=== PATIENT | male | born 1955 | race Asian ===

== ENCOUNTER 2019-04-21 11:58 | Outpatient (CLI) | payer MEDICARE ==
--- NOTE | 2019-04-22 09:29 | XRAY Report ---
Reason: OTHER INTERVERTEBRAL DISC DEGENERATION, LUMBAR REG Procedure Date: 04/21/2019 Accession Number: [id number] / [id number] Procedure: XR - Lumbar Spine 2 View CPT Code: Final Report FULL RESULT: EXAM: LUMBOSACRAL SPINE RADIOGRAPHY EXAM DATE: 04/21/2019 12:25 PM HISTORY: OTHER INTERVERTEBRAL DISC DEGENERATION, LUMBAR REG TECHNIQUE: AP, lateral and lateral lumbosacral 3 view exam COMPARISON: None. FINDINGS: Mild convex right curvature noted, centered at the L3-L4 level. There is associated moderate to severe degenerative disk disease at this level with disk space narrowing and endplate sclerosis with prominent osteophyte formation laterally on the left. Normal lordosis. No fracture identified. There is also evidence of mild disk space narrowing at L1-L2 and L2-L3. Other: Moderate calcific atherosclerotic disease of the aorta. IMPRESSION: Mild convex right curvature and L3-L4 moderate to severe degenerative disk disease. Mild upper lumbar degenerative disk disease. RADIA
--- NOTE | 2019-04-22 09:36 | XRAY Report ---
Reason: RADICULOPATHY Procedure Date: 04/21/2019 Accession Number: [id number] / [id number] Procedure: XR - Cervical Spine 2 View CPT Code: Final Report FULL RESULT: EXAM: CERVICAL SPINE RADIOGRAPHY EXAM DATE: 04/21/2019 12:23 PM HISTORY: RADICULOPATHY. COMPARISON: NONE. TECHNIQUE: AP, lateral with open mouth and submental odontoid views, 4 view exam FINDINGS: Reversal of the lordosis is centered at the C5-C6 level. No fracture identified within limitations. C1-2: Mild atlanto-dental degenerative appearance. C2-3: Slight anterolisthesis. Moderate posterior facet osteoarthritis greater on the left. Preserved disk space. C3-4: Mild disk space narrowing. Moderate posterior facet osteoarthritis greater on the left. No spondylolisthesis. C4-5: Moderate disk space narrowing and prominent ventral osteophyte formation. Mild uncovertebral joint hypertrophy. Mild posterior facet hypertrophy. No spondylolisthesis. C5-6: Moderate to severe disk space narrowing with moderate osteophyte formation and moderate uncovertebral joint hypertrophy. No significant facet osteoarthritis. No spondylolisthesis. C6-7: Moderate disk space narrowing and osteophyte formation. Moderate uncovertebral joint hypertrophy. No spondylolisthesis. C7-T1: Moderate disk space narrowing and osteophyte formation. Mild posterior facet osteoarthritis. No spondylolisthesis. Prevertebral soft tissues are unremarkable. IMPRESSION: Reversal of lordosis. Typical spondylosis with greater upper cervical posterior facet osteoarthritis and lower cervical degenerative disk disease. See above description. RADIA
== END 2019-04-21 11:59 | disposition home or self-care (01) ==
LOC: DI 11:58
PROVIDERS: ATTEND Family Medicine
DX: M51.36 Other intervertebral disc degeneration, lumbar region (principal); M50.13 Cervical disc disorder with radiculopathy, cervicothoracic region; M47.22 Other spondylosis with radiculopathy, cervical region
CPT/HCPCS: 72040; 72100

== ENCOUNTER 2019-07-28 08:00 | Outpatient (CLI) | payer MEDICAID, MEDICARE ==
[2019-07-28 17:33] LABS: BASOPHILS # (AUTO) 0.1 10^3/uL (0.0-0.1); EOSINOPHILS # (AUTO) 0.2 10^3/uL (0.0-0.7); EOSINOPHILS % (AUTO) 3.5 %; HGB - HEMOGLOBIN 15.2 g/dL (14.0-18.0); LYMPHOCYTES # (AUTO) 2.1 10^3/uL (1.5-3.5); LYMPHOCYTES % (AUTO) 35.4 %; MEAN CORPUSCULAR HEMOGLOBIN 33.3 pg (27.0-31.0); MEAN CORPUSCULAR HGB CONC 33.8 g/dL (32.0-36.0); MEAN CORPUSCULAR VOLUME 98.5 fL (80.0-94.0); MEAN PLATELET VOLUME 11.3 fL (7.4-11.4); MONOCYTES # (AUTO) 0.7 10^3/uL (0.0-1.0); MONOCYTES % (AUTO) 11.2 %; NEUTROPHILS # (AUTO) 2.9 10^3/uL (1.5-6.6); NEUTROPHILS % (AUTO) 48.6 %; PLT - PLATELET COUNT 189 10^3/uL (130-450); RED BLOOD COUNT 4.57 10^6/uL (4.70-6.10); RED CELL DISTRIBUTION WIDTH 13.9 % (12.0-15.0); WHITE BLOOD COUNT 6.1 x10^3/uL (4.8-10.8)
[2019-07-28 18:28] LABS: ALBUMIN 4.6 g/dL (3.2-5.5); ALBUMIN/GLOBULIN RATIO 1.5 (1.0-2.2); ALKALINE PHOSPHATASE 59 IU/L (42-121); ALT ALANINE AMINOTRANSFERASE 11 IU/L (10-60); AST ASPARTATE AMINOTRANSFERASE 19 IU/L (10-42); BILIRUBIN,TOTAL 1.3 mg/dL (0.2-1.0); BUN - BLOOD UREA NITROGEN 17 mg/dL (6-20); CALCIUM 9.4 mg/dL (8.5-10.3); CARBON DIOXIDE - CO2 24 mmol/L (21-32); CHLORIDE 105 mmol/L (101-111); CHOL/HDL RATIO 3.3 (<5.0); CHOLESTEROL 243 mg/dL; CREATININE 0.9 mg/dL (0.6-1.2); GLUCOSE 104 mg/dL (70-100); HDL CHOLESTEROL 73 mg/dL; LDL CHOLESTEROL,CALCULATED 153 mg/dL; LDL/HDL RATIO 2.1 (<3.6); SODIUM 139 mmol/L (135-145); TOTAL PROTEIN 7.7 g/dL (6.7-8.2); VLDL CHOLESTEROL 17 mg/dL
== END 2019-07-28 23:59 | disposition home or self-care (01) ==
LOC: LAB.N 08:00
PROVIDERS: ATTEND Family Medicine
DX: I48.91 Unspecified atrial fibrillation (principal); E78.5 Hyperlipidemia, unspecified; J44.9 Chronic obstructive pulmonary disease, unspecified; B19.20 Unspecified viral hepatitis C without hepatic coma
CPT/HCPCS: 36415; 80053; 80061; 83721; 84443; 85025

== ENCOUNTER 2020-01-26 11:19 | Day surgery (SDC) | payer MEDICARE ==
[2020-01-26] MEDS ORDERED: LACTATED RINGERS 1,000 ML IV ONE ×6 (11:48→13:58)
[2020-01-26] MEDS ORDERED: MIDAZOLAM 2 MG/2 ML VIAL IVP ONE (12:23)
[2020-01-26] MEDS ORDERED: fentaNYL 250 MCG/5 ML VIAL IVP ONE (12:23)
--- NOTE | 2020-01-26 14:09 | ANESTHESIA ---
Pre-Anesthesia VS, & Labs - Diagnosis history of polyps - Procedure Colonoscopy with polpectomies Vital Signs: Temp Pulse Resp BP Pulse Ox 36.4 C L 104 H 23 121/78 0 L 01/26/20 13:59 01/26/20 14:05 01/26/20 14:05 01/26/20 14:05 01/26/20 14:05 Height: 6 ft Weight (kg): 79 kg Body Mass Index: 23.6 BMI Classification: Healthy weight - NPO >8 hours Home Medications and Allergies Home Medications: Ambulatory Orders Metoprolol Tartrate [Lopressor] 01/25/20 Rivaroxaban [Xarelto] 20 mg PO 01/25/20 Metoprolol Tartrate [Lopressor] 01/25/20 Rivaroxaban [Xarelto] 20 mg PO 01/25/20 Allergies/Adverse Reactions: Allergies Allergy/AdvReac Type Severity Reaction Status Date / Time No Known Drug Allergies Allergy Verified 01/26/20 14:08 Anes History & Medical History - Medical History Cardiovascular: reports: Hypertension, Atrial fibrillation Pulmonary: reports: Emphysema Gastrointestinal: reports: Colon polyps Urinary: reports: None Musculoskeletal: reports: Chronic back pain Endocrine/Autoimmune: reports: None Skin: reports: None Psychosocial: reports: Alcohol - Surgical History Orthopedic: Other Exam General: Other (Patient sedated, exam deferred) Plan Anesthesia Type: MAC (Called to sedate patient after nurse sedation failed to keep patient sedate. History obtained from chart and RN. Patient had received 8mg versed and 200 mcg fentanyl prior to anesthesia arrival. Unable to obtain anesthesia consent, but consent implied.) Consent for Procedure(s) Verified and Reviewed: Yes Code Status: Attempt Resuscitation ASA classification: 3-Severe systemic disease Is this case an emergency?: No
[2020-01-26 14:21] VITALS: BP 123/92
[2020-01-26] MEDS ORDERED: ONDANSETRON 4 MG/2 ML VIAL IVP PRN (14:29)
[2020-01-26] MEDS ORDERED: fentaNYL 100 MCG/2 ML VIAL IVP PRN (14:29)
[2020-01-26] MEDS ORDERED: ATROPINE ABBOJECT 1 MG/10 ML SYRINGE IVP PRN (14:29)
[2020-01-26] MEDS ORDERED: MORPHINE 2 MG/ML CARPUJECT IVP PRN (14:29)
[2020-01-26] MEDS ORDERED: NALOXONE 0.4 MG/ML VIAL IVP PRN (14:29)
[2020-01-26] MEDS ORDERED: HYDROmorphone 0.5 MG/0.5 ML SYRINGE IVP PRN (14:29)
[2020-01-26] MEDS ORDERED: LACTATED RINGERS 1,000 ML IV SCH (15:00)
--- NOTE | 2020-01-26 16:51 | ANESTHESIA POST OP EVALUATION ---
Anesthesia Post Eval - Post Anesthesia Eval Vitals: Last Vital Signs Temp 36.5 C 01/26/20 14:18 Pulse 74 01/26/20 14:18 Resp 14 01/26/20 14:18 BP 123/92 H 01/26/20 14:18 Pulse Ox 97 01/26/20 14:18 CV Function Including HR & BP: positive: Stable Pain Control: positive: Satisfactory Nausea & Vomiting: positive: Negative Mental Status: positive: Baseline Respiratory Status: Airway Patent Hydration Status: Satisfactory Anesthesia Complications: positive: None
== END 2020-01-26 11:20 | disposition home or self-care (01) ==
LOC: SDS 11:19
PROVIDERS: ATTEND Surgery
PROC: 0DBE8ZZ Excision of Large Intestine, Via Natural or Artificial Opening Endoscopic (ICD-10-PCS; 2020-01-26)
PROC: 0DBE8ZZ Excision of Large Intestine, Via Natural or Artificial Opening Endoscopic (ICD-10-PCS; principal; 2020-01-26 12:30)
DX: Z12.11 Encounter for screening for malignant neoplasm of colon (principal); D12.2 Benign neoplasm of ascending colon; D12.3 Benign neoplasm of transverse colon; K63.89 Other specified diseases of intestine; I48.91 Unspecified atrial fibrillation; J43.9 Emphysema, unspecified; F17.210 Nicotine dependence, cigarettes, uncomplicated; Z86.19 Personal history of other infectious and parasitic diseases; Z72.89 Other problems related to lifestyle
CPT/HCPCS: 45380; 45385; J3010; J7120

== ENCOUNTER 2020-07-25 08:56 | Outpatient (CLI) | payer MEDICARE ==
--- NOTE | 2020-07-25 09:29 | CT Report ---
PROCEDURE: Low Dose Lung Cancer Screen INDICATIONS: ATRIAL FIBRILLATION, CURRENT SMOKER TECHNIQUE: Noncontrast low-dose 5 mm thick sections acquired from the pulmonary apices to the posterior costophr enic angles. 7 mm thick coronal and sagittal MIP reformats were then acquired. For radiation dose r eduction, the following was used: automated exposure control, adjustment of mA and/or kV according t o patient size. COMPARISON: None. FINDINGS: Image quality: Excellent. Lungs and pleura: No suspicious pulmonary nodule or mass. No acute airspace opacity otherwise. The c entral airways are clear. No significant pleural findings. Mediastinum: Heart size is normal. No pericardial effusion. Moderate coronary calcification. Mild aortic atherosclerosis. Normal caliber thoracic aorta and main pulmonary trunk. No structural enlarge d mediastinal or hilar lymph node with limitation at the ambrose are not well evaluated without IV contr ast. Bones and chest wall: No suspicious bony lesions. No vertebral body compression fractures. No axil anisha or supraclavicular adenopathy by size criteria. The thyroid is normal in size. Abdomen: Visualized upper abdomen solid organs and bowel loops appear normal in the absence of contr ast. IMPRESSION: Lung-RADS Category 1. No suspicious pulmonary nodule or mass. Recommendation: Continued annual low-dose CT of the chest for lung cancer screening. Additional findings of coronary and aortic atherosclerosis. Reviewed by: Hermann Mike MD on 07/25/2020 9:27 AM PDT Approved by: Hermann Mike MD on 07/25/2020 9:27 AM PDT Station ID: [id number]
== END 2020-07-25 08:57 | disposition home or self-care (01) ==
LOC: DI 08:56
PROVIDERS: ATTEND Family Medicine
DX: Z12.2 Encounter for screening for malignant neoplasm of respiratory organs (principal); F17.210 Nicotine dependence, cigarettes, uncomplicated; I48.91 Unspecified atrial fibrillation; I34.0 Nonrheumatic mitral (valve) insufficiency
CPT/HCPCS: 93306

== ENCOUNTER 2021-06-18 08:00 | Outpatient (CLI) | payer MEDICARE, MEDICAID ==
--- NOTE | 2021-06-18 17:00 | XRAY Report ---
PROCEDURE: Foot 3 View LT INDICATIONS: L FOOT PX TECHNIQUE: 3 views of the foot were acquired. COMPARISON: None FINDINGS: Bones: Postsurgical changes are noted involving posterior portion of calcaneus with [address] No gross hardware loosening or failure is seen. No acute fracture or dislocation. Forefoot joint osteoarthritic changes are seen with joint space narrowing and subchondral sclerosis most prom inent at first MTP joint and first interphalangeal joint. No suspicious bony lesions. Soft tissues: No tibiotalar joint effusion. Achilles tendon appears normal. IMPRESSION: Osteoarthritic changes in left foot more prominent at first MTP joint and first interphalangeal joint . No acute fracture or dislocation. Prior surgery in posterior to mid calcaneus, no gross hardware co mplication. Reviewed by: Will Thacker MD on 06/18/2021 4:59 PM PST Approved by: Will Thacker MD on 06/18/2021 4:59 PM PST Station ID: [id number]
== END 2021-06-18 23:59 ==
LOC: DI.N 08:00
PROVIDERS: ATTEND Registered Nurse
DX: M19.072 Primary osteoarthritis, left ankle and foot (principal)

== ENCOUNTER 2021-06-19 23:45 | Outpatient (CLI) | payer MEDICARE, MEDICAID | END 2021-06-19 23:59 | disposition critical access hospital (66) | LOC: EMS 23:45 | DX: M25.572 Pain in left ankle and joints of left foot (principal) | CPT/HCPCS: A0425; A0429 ==

== ENCOUNTER 2021-06-20 00:01 | Emergency (ER) | payer MEDICARE, MEDICAID ==
[2021-06-20 00:26] VITALS: BP 147/98
--- NOTE | 2021-06-20 00:38 | ED Physician Documentation ---
History of Present Illness - Stated complaint Stated Complaint: L ANKLE PX - Chief complaint Chief Complaint: Ext Problem - History obtained from History obtained from: Patient - History of Present Illness Timing: How many days ago (3) Pain level now: 10 Improved by: rest Worsened by: palpation, weight-bearing - Additonal information Additional information: BIBA, c/o atraumatic left ankle pain, predominantly lateral aspect, gradual onset 3 days ago without inciting event, steadily progressing in intensity. . He had bilateral calcaneus fractures approximately 35 years ago and repair that included three screws to stabilize left calcaneus. Denies fever. He was seen in outpatient setting 06/18 and xrays were undertaken which did not show any abnormality including no evidence of hardware failure/migration. Review of Systems Constitutional: denies: Fever Cardiac: reports: Reviewed and negative Respiratory: reports: Reviewed and negative Musculoskeletal: reports: Joint pain, Joint swelling, Pain with weight bearing. denies: Neck pain, Back pain PD PAST MEDICAL HISTORY - Past Medical History Cardiovascular: Hypertension, Atrial fibrillation Respiratory: Emphysema Endocrine/Autoimmune: None GI: Colon polyps : None HEENT: None Psych: None Musculoskeletal: Chronic back pain Derm: None - Past Surgical History Ortho: Other - Present Medications Home Medications: Ambulatory Orders Medication Instructions Recorded Confirmed Metoprolol Tartrate [Lopressor] 01/25/20 Rivaroxaban [Xarelto] 20 mg PO 01/25/20 Oxycodone HCl/Acetaminophen 1 - 2 each PO Q6H PRN #14 tablet 06/20/21 [Percocet 5-325 mg Tablet] - Allergies Allergies/Adverse Reactions: Allergies Allergy/AdvReac Type Severity Reaction Status Date / Time No Known Drug Allergies Allergy Verified 01/26/20 14:08 PD ED PE NORMAL - Vitals Vital signs reviewed: Yes - General General: Alert and oriented X 3, Well developed/nourished, Other (appears to be in painful distress) - Cardiac Cardiac: No murmur - Extremities Extremities: No deformity, Normal ROM s pain - Neuro Neuro: No motor deficit, No sensory deficit PD ED PE EXPANDED - Cardiac Cardiac: Irregularly irregular - Extremities Extremities: Tenderness, Swelling, Other (right ankle , lateral aspect: mild/moderate swelling, faint and poorly-marginated erythema. Exquisitely TTP. no abnormal warmth/heat to touch. ROM intact at ankle). No: Red warm joint Results - Vitals Vitals: Oxygen O2 Source Room air - Labs Labs: Laboratory Tests 06/20/21 06/20/21 06/20/21 01:01 01:01 01:01 WBC 9.0 RBC 3.86 L Hgb 13.3 L Hct 39.1 L MCV 101.3 H MCH 34.5 H MCHC 34.0 RDW 12.3 Plt Count 183 MPV 10.2 Neut # (Auto) 4.5 Lymph # (Auto) 2.7 [place] # (Auto) 1.0 Eos # (Auto) 0.7 Baso # (Auto) 0.1 Absolute Nucleated RBC 0.00 Nucleated RBC % 0.0 ESR 4 Sodium 139 Potassium 4.0 Chloride 105 Carbon Dioxide 24 Anion Gap 10.0 BUN 14 Creatinine 1.0 Estimated GFR (MDRD) 75 L Glucose 116 H Calcium 9.4 C-Reactive Protein < 1.0 PD MEDICAL DECISION MAKING - ED course Complexity details: reviewed results (reviewed xrays with radiologists interpretation (performed earlier this week, left ankle)), re-evaluated patient, considered differential, d/w patient ED course: presents with few days of left ankle pain and swelling, no recent trauma. There is mild/moderate swelling left ankle with mild and faint erythema of the lateral aspect with tenderness to palpation. He is afebrile and there is no abnormal warmth/heat to touch. Unremarkable blood tests including normal WBC, ESR, and CRP. Infectious process, such as osteomyelitis, cellulitis, are unlikely given these normal inflammatory markers. Gout is considered, although no h/o gout and not typical location for first episode. Imaging is not indicated at this time. He is given 1mg IV dilaudid with some relief, but reports excellent relief with 2mg dilaudid IV (total of 3mg). Results reviewed with patient, differential diagnosis discussed as were follow-up recommendations and return precautions. Percocet take-home pack and rx for same provided. Departure - Departure Disposition: Home, Self Care Clinical Impression: Ankle pain, left Qualifiers: Chronicity: acute Qualified Code(s): M25.572 - Pain in left ankle and joints of left foot Condition: Good Instructions: ED Joint Pain Follow-Up: Kennedy Mccord DO [Primary Care Provider] - Prescriptions: Oxycodone HCl/Acetaminophen [Percocet 5-325 mg Tablet] 1 - 2 each PO Q6H PRN #14 tablet PRN Reason: pain Comments: The results of your blood tests are unremarkable at this time. As we discussed, it is unlikely that your symptoms are caused by a problem with the hardware (screws). Infection would be a very concerning cause of swelling and pain of a joint, but your blood tests suggest that this is unlikely. Although a cause has not been found at this time, there is no indication for further treatment or testing in the emergency department at this time. Please follow up with your primary care provider, and return to the ER if your symptoms worsen or if you develop new concerning signs/symptoms (such as fever or pain that is not controlled with the prescription). A prescription for percocet has been electronically submitted to [facility] pharmacy in [place]. Discharge Date/Time: 06/20/21 05:53
[2021-06-20] MEDS ORDERED: HYDROmorphone 1 MG/ML CARPUJECT IVP STA ×2 (00:55→02:01)
[2021-06-20 01:07] LABS: BASOPHILS # (AUTO) 0.1 10^3/uL (0.0-0.1); BASOPHILS % (AUTO) 0.8 %; EOSINOPHILS # (AUTO) 0.7 10^3/uL (0.0-0.7); EOSINOPHILS % (AUTO) 8.2 %; HCT - HEMATOCRIT 39.1 % (42.0-52.0); HGB - HEMOGLOBIN 13.3 g/dL (14.0-18.0); LYMPHOCYTES # (AUTO) 2.7 10^3/uL (1.5-3.5); LYMPHOCYTES % (AUTO) 29.8 %; MEAN CORPUSCULAR HEMOGLOBIN 34.5 pg (27.0-31.0); MEAN CORPUSCULAR VOLUME 101.3 fL (80.0-94.0); MEAN PLATELET VOLUME 10.2 fL (7.4-11.4); MONOCYTES % (AUTO) 11.1 %; NEUTROPHILS # (AUTO) 4.5 10^3/uL (1.5-6.6); NEUTROPHILS % (AUTO) 49.9 %; PLT - PLATELET COUNT 183 10^3/uL (130-450); RED BLOOD COUNT 3.86 10^6/uL (4.70-6.10); RED CELL DISTRIBUTION WIDTH 12.3 % (12.0-15.0)
[2021-06-20 01:24] LABS: BUN - BLOOD UREA NITROGEN 14 mg/dL (6-20); CALCIUM 9.4 mg/dL (8.5-10.3); CARBON DIOXIDE - CO2 24 mmol/L (21-32); CHLORIDE 105 mmol/L (101-111); GFR - MDRD 75 (>89); GLUCOSE 116 mg/dL (70-100); SODIUM 139 mmol/L (135-145)
[2021-06-20 01:35] LABS: CRP - C-REACTIVE PROTEIN < 1.0 mg/dL (0-1.0)
[2021-06-20] MEDS ORDERED: oxyCODONE/ACET 5/325 Prepack 4 PO STA (04:56)
== END 2021-06-20 05:53 | disposition home or self-care (01) ==
LOC: EDUNIT# → ED 00:01
DX: M25.572 Pain in left ankle and joints of left foot (principal); I10 Essential (primary) hypertension; I48.91 Unspecified atrial fibrillation; Z79.01 Long term (current) use of anticoagulants
CPT/HCPCS: 36415; 80048; 85025; 85651; 86140; 96374; 96376; 99283; J1170

== ENCOUNTER 2021-06-24 08:24 | Outpatient (CLI) | payer MEDICARE, MEDICAID ==
--- NOTE | 2021-06-24 12:24 | XRAY Report ---
PROCEDURE: Calcaneus LT INDICATIONS: LEFT FOOT PAIN TECHNIQUE: AP views of the right calcaneus and left calcaneus were acquired. COMPARISON: Left foot x-ray series 06/18/2021. FINDINGS: Bones: Fixation screws in the right calcaneus and left calcaneus are stable in appearance compared t o . No acute fractures or dislocations. No suspicious bony lesions. Soft tissues: No suspicious calcifications. Achilles tendon appears normal. IMPRESSION: Stable calcaneal fixation screws. Reviewed by: Yolanda Zamora MD, PhD on 06/24/2021 12:22 PM PST Approved by: Yolanda Zamora MD, PhD on 06/24/2021 12:22 PM [facility] Station ID: [id number]
== END 2021-06-24 08:25 | disposition home or self-care (01) ==
LOC: DI.WOS 08:24
PROVIDERS: ATTEND Orthopaedic Surgery
DX: M79.672 Pain in left foot (principal)

== ENCOUNTER 2021-09-25 10:52 | Outpatient (CLI) | payer MEDICARE, MEDICAID ==
--- NOTE | 2021-09-25 15:08 | CT Report ---
PROCEDURE: LOWER EXTREMITY WO - LT INDICATIONS: OSTEOARTHRITIS OF SUGTALAR JOINT TECHNIQUE: Noncontrast 3-mm axial sections acquired from the distal tibial shaft to the talar dome, with coronal and sagittal reformats. For radiation dose reduction, the following was used: automated exposure c ontrol, adjustment of mA and/or kV according to patient size. COMPARISON: Calcaneal radiographs dated 06/24/2019 to, left foot radiograph dated 06/18/2021.. FINDINGS: Image quality: Diagnostic, beam hardening artifacts from calcaneal surgical hardware are seen.. Bones: As seen on prior foot radiograph, 2 surgical screws are again seen in weightbearing portion o f upper calcaneus with healed calcaneal fracture/osteotomy. No gross hardware loosening or failure is seen. No acute fracture or dislocation. Moderate subtalar joint osteoarthritic changes are seen with joint space narrowing, subchondral sclerosis and marginal osteophyte formation. Mild osteoarthritic changes also seen in tibiotalar, calcaneocuboid, and talonavicular joints. No suspicious intraosseous lesion. No evidence of osteonecrosis. Soft tissues: Small to moderate tibiotalar and subtalar joint effusion is seen, no gross intra-artic ular loose bodies. Vascular calcifications are seen in ankle soft tissue. No full-thickness ankle ten don rupture. Plantar fascia is intact. Impression: 1. Postsurgical changes in weight-bearing portion of calcaneus with healed old calcaneal fracture/ost eotomy. No evidence of hardware complication. 2. No acute fracture or dislocation. Moderate subtalar joint osteoarthritis. Mild to moderate osteoar thritic changes in tibiotalar, talonavicular and calcaneocuboid joints. No suspicious intraosseous le harleen. 3. Tibiotalar and subtalar joint effusion. No intra-articular loose bodies. Vascular calcifications i n ankle soft tissue. No full-thickness tendon rupture. Reviewed by: Will Thacker MD on 09/25/2021 3:07 PM PDT Approved by: Will Thacker MD on 09/25/2021 3:07 PM PDT Station ID: [id number]
== END 2021-09-25 10:53 | disposition home or self-care (01) ==
LOC: DI 10:52
PROVIDERS: ATTEND Orthopaedic Surgery
DX: M19.072 Primary osteoarthritis, left ankle and foot (principal); M25.472 Effusion, left ankle

== ENCOUNTER 2021-10-31 12:10 | Outpatient (CLI) | payer MEDICARE, MEDICAID ==
[2021-10-31 17:36] LABS: BASOPHILS # (AUTO) 0.1 10^3/uL (0.0-0.1); BASOPHILS % (AUTO) 1.1 %; EOSINOPHILS # (AUTO) 0.5 10^3/uL (0.0-0.7); EOSINOPHILS % (AUTO) 7.4 %; HCT - HEMATOCRIT 43.2 % (42.0-52.0); HGB - HEMOGLOBIN 14.6 g/dL (14.0-18.0); LYMPHOCYTES # (AUTO) 2.5 10^3/uL (1.5-3.5); LYMPHOCYTES % (AUTO) 36.2 %; MEAN CORPUSCULAR HEMOGLOBIN 34.1 pg (27.0-31.0); MEAN CORPUSCULAR HGB CONC 33.8 g/dL (32.0-36.0); MEAN CORPUSCULAR VOLUME 100.9 fL (80.0-94.0); MEAN PLATELET VOLUME 10.8 fL (7.4-11.4); MONOCYTES # (AUTO) 0.6 10^3/uL (0.0-1.0); NEUTROPHILS # (AUTO) 3.2 10^3/uL (1.5-6.6); PLT - PLATELET COUNT 219 10^3/uL (130-450); RED BLOOD COUNT 4.28 10^6/uL (4.70-6.10); RED CELL DISTRIBUTION WIDTH 12.6 % (12.0-15.0)
[2021-10-31 18:04] LABS: ALBUMIN 4.7 g/dL (3.2-5.5); ALBUMIN/GLOBULIN RATIO 1.5 (1.0-2.2); ALKALINE PHOSPHATASE 69 IU/L (42-121); ALT ALANINE AMINOTRANSFERASE 13 IU/L (10-60); AST ASPARTATE AMINOTRANSFERASE 22 IU/L (10-42); BILIRUBIN,TOTAL 0.9 mg/dL (0.2-1.0); BUN - BLOOD UREA NITROGEN 11 mg/dL (6-20); CALCIUM 9.6 mg/dL (8.5-10.3); CARBON DIOXIDE - CO2 26 mmol/L (21-32); CHLORIDE 100 mmol/L (101-111); CHOL/HDL RATIO 2.9 (<5.0); CHOLESTEROL 248 mg/dL; CREATININE 0.9 mg/dL (0.6-1.2); GFR - MDRD 85 (>89); GLUCOSE 112 mg/dL (70-100); HDL CHOLESTEROL 87 mg/dL; LDL CHOLESTEROL,CALCULATED 142 mg/dL; LDL/HDL RATIO 1.6 (<3.6); POTASSIUM 4.8 mmol/L (3.5-5.0); SODIUM 137 mmol/L (135-145); TOTAL PROTEIN 7.9 g/dL (6.7-8.2); TRIGLYCERIDES 93 mg/dL; VLDL CHOLESTEROL 19 mg/dL
== END 2021-10-31 12:11 | disposition home or self-care (01) ==
LOC: LAB.N 12:10
PROVIDERS: ATTEND Physician Assistant
DX: I10 Essential (primary) hypertension (principal); I25.10 Atherosclerotic heart disease of native coronary artery without angina pectoris
CPT/HCPCS: 36415; 80053; 80061; 83721; 85025

== ENCOUNTER 2021-11-26 08:24 | Outpatient (CLI) | payer MEDICARE, MEDICAID ==
--- NOTE | 2021-11-26 11:12 | Ultrasound Report ---
PROCEDURE: Abdomen Limited INDICATIONS: HEP C, ALCOHOL ABUSE, SCREENING FOR LUNG CA TECHNIQUE: Real-time scanning was performed of the abdominal and retroperitoneal organs, with image documentatio n. COMPARISON: None. FINDINGS: Liver: Liver is normal in size and diffusely increased in echogenicity. Hepatopetal flow seen in th e main portal vein. Portable vein flow and is most likely within normal limits without evidence flow visually at approxim ately 20 cm/s, although a focal transient measurement to 44 cm/s was noted, which is of uncertain cli nical significance. Gallbladder: The gallbladder appears normal without gallstones or gallbladder wall thickening. There is no pericholecystic fluid. Sonographic Rodriguez sign is negative. Biliary ducts: Intrahepatic bile ducts are non-dilated. Extrahepatic bile duct caliber measures 5 m m. Normal is 6-7 mm or less in diameter, or 10 mm or less post-cholecystectomy. Pancreas: Visualized portions of the pancreas are sonographically normal. Right kidney: Right kidney is normal in size and echotexture. Right kidney measures 11.0 cm long. N o hydronephrosis or nephrolithiasis. No solid masses. Aorta: Focal ectasia of the infrarenal distal abdominal aorta is seen measuring up to 2.8 cm in anter oposterior dimension. Iliacs: Proximal common iliac arteries are normal in caliber at less than 2.5 cm. IVC: Intrahepatic inferior vena cava is patent. Miscellaneous: No free abdominal fluid. IMPRESSION: 1.Diffusely increased hepatic echogenicity is nonspecific, but most commonly encountered in the setti ng of hepatic steatosis. However, other causes of hepatocellular disease are not excluded. Recommend clinical correlation. 2.Mild ectasia of the infrarenal abdominal aorta measures up to 2.8 cm in diameter. Recommend 5 year follow-up ultrasound. Reviewed by: Davin Titus MD on 11/26/2021 11:10 AM PDT Approved by: Davin Titus MD on 11/26/2021 11:10 AM PDT Station ID: [id number]
--- NOTE | 2021-11-26 15:21 | CT Report ---
PROCEDURE: Low Dose Lung Cancer Screen INDICATIONS: HEP C, ALCOHOL ABUSE, SCREENING FOR LUNG CA TECHNIQUE: Noncontrast low-dose axial images were acquired from the pulmonary apices to the posterior costophren ic angles. Multiplanar MIP reformats were then reconstructed. For radiation dose reduction, the follo wing was used: automated exposure control, adjustment of mA and/or kV according to patient size. COMPARISON: CT chest 07/25/2020. FINDINGS: Image quality: Excellent. Images are denoted as (series #/image #). Visualized thyroid: Unremarkable. Lymph nodes: No evidence of thoracic lymphadenopathy however evaluation for mediastinal and hilar luz nopathy is limited in the absence of intravenous contrast. Vasculature: Aorta and main pulmonary artery diameters are within normal range. Heart: No pericardial effusion. Multivessel coronary artery calcifications. Lung parenchyma and pleura: Nodules include: -Right upper lobe inferiorly: 3 mm solid nodule (4/150), unchanged. No definite new suspicious or enlarging pulmonary nodule. Calcified granuloma superior aspect of the right middle lobe. No pleural effusion. Airways: Centrally patent. Chest wall/musculoskeletal: Multilevel degenerative change of the visualized spine. Visualized upper abdomen: Unremarkable. IMPRESSION: Lung-RADS category 2: Benign appearance or behavior. Recommendation: Continue annual screening with low-dose noncontrast chest CT in 12 months. Reviewed by: Davin Hughes MD on 11/26/2021 3:19 PM PDT Approved by: Davin Hugehs MD on 11/26/2021 3:19 PM PDT Station ID: [id number]
== END 2021-11-26 08:25 | disposition home or self-care (01) ==
LOC: DI 08:24
PROVIDERS: ATTEND Physician Assistant
DX: Z12.2 Encounter for screening for malignant neoplasm of respiratory organs (principal); F10.10 Alcohol abuse, uncomplicated; B19.20 Unspecified viral hepatitis C without hepatic coma; I77.811 Abdominal aortic ectasia

== ENCOUNTER 2022-01-20 08:00 | Outpatient (CLI) | payer MEDICARE, MEDICAID | END 2022-01-20 23:59 | disposition home or self-care (01) | LOC: LAB.N 08:00 | PROVIDERS: ATTEND Physician Assistant Medical | DX: M10.9 Gout, unspecified (principal) | CPT/HCPCS: 36415; 84550 ==

== ENCOUNTER 2022-06-05 16:43 | Outpatient (CLI) | payer MEDICARE, MEDICAID ==
--- NOTE | 2022-06-05 20:24 | XRAY Report ---
PROCEDURE: Chest 2 View X-Ray INDICATIONS: COPD TECHNIQUE: 2 views of the chest were acquired. COMPARISON: CT 11/26/2021 FINDINGS: Surgical changes and devices: None. Lungs and pleura: No pleural effusions or pneumothorax. Lungs are clear. Mediastinum: Mediastinal contours are normal. Heart size is normal. Bones and chest wall: No suspicious bony abnormalities. Soft tissues appear unremarkable. IMPRESSION: No acute radiographic abnormality. Reviewed by: Fransisco Smalls MD on 06/05/2022 8:22 PM [facility] Approved by: Fransisco Smalls MD on 06/05/2022 8:22 PM [facility] Station ID: [id number]
== END 2022-06-05 16:44 | disposition home or self-care (01) ==
LOC: DI 16:43
PROVIDERS: ATTEND Family Medicine
DX: J44.9 Chronic obstructive pulmonary disease, unspecified (principal)

== ENCOUNTER 2022-09-04 13:09 | Outpatient (CLI) | payer MEDICARE, MEDICAID ==
[2022-09-04 13:22] LABS: MUDS CUTOFF CONCENTRATIONS CUTOFF CONC BELOW:
[2022-09-04 18:07] LABS: ALBUMIN 4.1 g/dL (3.2-5.5); ALBUMIN/GLOBULIN RATIO 1.2 (1.0-2.2); CALCIUM 9.1 mg/dL (8.5-10.3); CREATININE 0.8 mg/dL (0.6-1.2); POTASSIUM 4.4 mmol/L (3.5-5.0); TOTAL PROTEIN 7.5 g/dL (6.7-8.2)
[2022-09-04 18:26] LABS: AMPHETAMINE SCREEN,URINE NEGATIVE (NEGATIVE); BARBITURATE SCREEN,UR NEGATIVE (NEGATIVE); BENZODIAZEPINES SCREEN, URINE NEGATIVE (NEGATIVE); COCAINE SCREEN URINE NEGATIVE (NEGATIVE); METHADONE SCREEN, URINE NEGATIVE (NEGATIVE); METHAMPHETAMINES SCREEN, URINE NEGATIVE (NEGATIVE); OPIATE SCREEN, URINE NEGATIVE (NEGATIVE); OXYCODONE SCREEN, URINE NEGATIVE (NEGATIVE); PROPOXYPHENE SCREEN, URINE NEGATIVE (NEGATIVE); THC CANNABINOID SCREEN, URINE NEGATIVE (NEGATIVE); TRICYCLIC ANTIDEPRESSANT,URINE NEGATIVE (NEGATIVE)
[2022-09-05 06:09] LABS: HBsAG SCREEN Negative (Negative); HEPATITIS B SURFACE AB QUANT <3.1 mIU/mL (Immunity>9.9); HIV SCREEN 4TH GENERATION Non Reactive (Non Reactive)
[2022-09-09 10:09] LABS: HCV AB Reactive (Non Reactive); HCV IU/ML 20 IU/mL (.); HCV LOG10 1.301 (.)
== END 2022-09-04 13:10 | disposition home or self-care (01) ==
LOC: LAB.N 13:09
PROVIDERS: ATTEND Physician Assistant
DX: Z79.899 Other long term (current) drug therapy (principal); F10.10 Alcohol abuse, uncomplicated
CPT/HCPCS: 36415; 80053; 80306; 86317; 86704; 86709; 86803; 87340; G0475; 87389; 87522

== ENCOUNTER 2022-09-14 08:00 | Outpatient (CLI) | payer MEDICARE, MEDICAID ==
--- NOTE | 2022-09-14 10:32 | XRAY Report ---
PROCEDURE: Foot 3 View RT INDICATIONS: RIGHT FOOT PAIN TECHNIQUE: 4 views of the foot were acquired. COMPARISON: CT left ankle dated 09/25/2021, left calcaneal plain films dated 06/24/2021. FINDINGS: Bones: No fractures or dislocations. No suspicious bony lesions. Calcaneal hardware is intact wit h no evidence of hardware failure or loosening. Talocalcaneal degenerative arthritis. Soft tissues: No suspicious soft tissue calcifications or masses. IMPRESSION: 1. Expected appearance of orthopedic hardware. 2. No evidence acute bony abnormality. 3. Posttraumatic degenerative arthritis. Reviewed by: Martin Irizarry MD on 09/14/2022 10:31 AM PDT Approved by: Martin Irizarry MD on 09/14/2022 10:31 AM PDT Station ID: [id number]
== END 2022-09-14 23:59 | disposition home or self-care (01) ==
LOC: DI.WOS 08:00
PROVIDERS: ATTEND Orthopaedic Surgery
DX: M19.171 Post-traumatic osteoarthritis, right ankle and foot (principal); T14.90XS Injury, unspecified, sequela

== ENCOUNTER 2022-10-25 20:48 | Outpatient (CLI) | payer MEDICARE, MEDICAID | END 2022-10-25 23:59 | disposition critical access hospital (66) | LOC: EMS 20:48 | DX: M25.572 Pain in left ankle and joints of left foot (principal); W18.40XA Slipping, tripping and stumbling without falling, unspecified, initial encounter; Y93.01 Activity, walking, marching and hiking | CPT/HCPCS: A0425; A0429 ==

== ENCOUNTER 2022-10-25 21:07 | Emergency (ER) | payer MEDICARE, MEDICAID ==
--- NOTE | 2022-10-25 21:57 | XRAY Report ---
PROCEDURE: Ankle 3 View LT INDICATIONS: pain to lateral ankle/stumbled TECHNIQUE: 3 views of the ankle were acquired. COMPARISON: CT lower extremity 09/25/2021, x-ray foot 06/18/2021 FINDINGS: Bones: No fractures or dislocations. Ankle mortise is normally aligned. No suspicious bony lesions . Calcaneal fusion hardware is present. Hardware is intact without evidence of hardware fracture or periprosthetic lucency to suggest loosening. Soft tissues: No tibiotalar joint effusion. Achilles tendon appears normal. IMPRESSION: No visualized acute fracture or dislocation. However, occult injury cannot be excluded. Recommend soy rt interval imaging follow-up in 7-10 days as clinically indicated for additional evaluation. Reviewed by: Juanita Begum MD on 10/25/2022 9:56 PM PDT Approved by: Juanita Begum MD on 10/25/2022 9:56 PM PDT Station ID: [id number]
[2022-10-25] MEDS ORDERED: HYDROcod/ACET 5/325 Prepack 4 PO STA (21:59)
[2022-10-25 22:18] VITALS: BP 117/71
--- NOTE | 2022-10-25 22:20 | ED Physician Documentation ---
PD HPI LOWER EXT INJURY - Stated complaint Stated Complaint: L ANKLE INJ - Chief complaint Chief Complaint: Ext Problem - History obtained from History obtained from: Patient - Additional information Additional information: Patient is a 67-year-old male presenting for evaluation of left ankle pain that is been present since yesterday.Patient was at near [facility] over the weekend and states he stumbled yesterday afternoon and since that time his left ankle has been bothering him. He has had prior injuries to bilateral calcaneus from a fall of a building a long time ago.He denies any recent head injuries or other falls.He denies pain elsewhere. Review of Systems Constitutional: denies: Fever Cardiac: denies: Chest pain / pressure Respiratory: denies: Dyspnea GI: denies: Abdominal Pain Musculoskeletal: reports: Joint pain Neurologic: denies: Head injury PD PAST MEDICAL HISTORY - Past Medical History Cardiovascular: Hypertension, Atrial fibrillation Respiratory: Emphysema Endocrine/Autoimmune: None GI: Colon polyps : None HEENT: None Psych: None Musculoskeletal: Chronic back pain Derm: None - Past Surgical History Ortho: Other - Present Medications Home Medications: Ambulatory Orders Medication Instructions Recorded Confirmed Metoprolol Tartrate [Lopressor] 01/25/20 Rivaroxaban [Xarelto] 20 mg PO 01/25/20 Oxycodone HCl/Acetaminophen 1 - 2 each PO Q6H PRN #14 tablet 06/20/21 [Percocet 5-325 mg Tablet] - Allergies Allergies/Adverse Reactions: Allergies Allergy/AdvReac Type Severity Reaction Status Date / Time No Known Drug Allergies Allergy Verified 10/25/22 21:23 PD ED PE NORMAL - General General: Alert and oriented X 3, No acute distress, Well developed/nourished - HEENT HEENT: Atraumatic, Moist mucous membranes - Neck Neck: Supple, no meningeal sign, No bony TTP - Cardiac Cardiac: RRR, Strong equal pulses - Respiratory Respiratory: No respiratory distress - Extremities Extremities: No deformity, No calf tenderness / cord, Other (Tenderness to left lateral malleolus; Distal pulses intact, normal range of motion at left knee, no tenderness over tib-fib) - Neuro Neuro: Alert and oriented X 3, No motor deficit, No sensory deficit, Normal speech Results - Vitals Vitals: Vital Signs - 24 hr 10/25/22 10/25/22 21:12 22:16 Temperature 37 C Heart Rate 51 L 98 Respiratory 16 20 Rate Blood Pressure 111/95 H 117/71 O2 Saturation 99 100 Oxygen O2 Source Room air PD Medical Decision Making - ED course Complexity details: reviewed results, re-evaluated patient, d/w patient ED course: Patient with left ankle injury after stumbling yesterday. Neurovascularly intact. No pain noted elsewhere. X-ray was obtained which I reviewed and see no signs of a fracture or dislocation. Patient did request something for pain and thus was given a prescription for hydrocodone with acetaminophen. He has followed up with Dr. Collier in the past and was encouraged to have close orthopedic follow-up for his injury. He was placed into an Aircast and given crutches.Patient counseled on concerning symptoms to return for. Departure - Departure Disposition: 01 Home, Self Care Clinical Impression: Left ankle injury Condition: Stable Instructions: ED Sprain Ankle Follow-Up: Ajay Collier MD [Provider Admit Priv/Credential] - Within 1 week Comments: Your ankle x-ray does not show a broken or out of place bone and your hardware appears to be in place. Please use the ankle splint and crutches to ambulate a nd get around as long as it is hurting to put weight on the foot. I would recommend close follow-up with your orthopedic surgeon, Dr. Simms. I did given you a small amount of narcotic pain medication tonight. Please use this sparingly. Continue with ice, elevation. I am prescribing a short course of narcotic pain medication for you. These are potentially dangerous and addictive medications that should be used carefully. These medications may constipate you. Take an gvbg-rcx-awyaqvy stool softener (docusate) twice daily with plenty of water while taking these medications. If you go 24 hours without a bowel movement, take dqux-dto-rjwmkzq miralax, per package instructions. Do not drink or drive while taking these medications. If you received narcotic or sedating medications while in the emergency department, do not drive for 24 hours. Store this medication in a safe, secure place and out of reach of children. It is a violation of federal law to give or sell this medication to another person or to use in a manner other than prescribed. The ED will not refill narcotic prescriptions, including prescriptions lost or stolen. To dispose of unwanted medications: 1. [facility] at [address] in [place] has a medication drop box. They accept prescription medications (in pill form) Wednesday through Wednesday 9:00 a.m. to 5:00 p.m. 2. The [facility] [employer] accepts prescription medications (in pill form only) for disposal year round. Call for more information. 3. Contact the [facility] for the next [facility] sponsored prescription drug collection event. , [phone], or x7595; Note that many narcotic pain relievers also contain Tylenol/acetaminophen. Please ensure that your total dose of acetaminophen from all sources does not exceed 3 g (3000 mg) per day. Return to the emergency department with any new or worsening symptoms. Discharge Date/Time: 10/25/22 22:40
== END 2022-10-25 22:40 | disposition home or self-care (01) ==
LOC: ED 21:07
DX: S99.912A Unspecified injury of left ankle, initial encounter (principal); X58.XXXA Exposure to other specified factors, initial encounter; I10 Essential (primary) hypertension; I48.91 Unspecified atrial fibrillation; Z79.01 Long term (current) use of anticoagulants
CPT/HCPCS: 99283

== ENCOUNTER 2022-11-23 11:13 | Outpatient (CLI) | payer MEDICARE, MEDICAID ==
--- NOTE | 2022-11-23 17:22 | CT Report ---
PROCEDURE: Low Dose Lung Cancer Screen INDICATIONS: NICOTINE ABUSE TECHNIQUE: A CT scan of the chest was performed. Intravenous contrast media was not administered. Images were re corded and evaluated at appropriate window settings. Reformats: axial MIP of the chest, coronal and s agittal. For radiation dose reduction, the following was used: automated exposure control, adjustment of mA and/or kV according to patient size. COMPARISON: CT chest, 11/26/2021. FINDINGS: Image quality: Excellent. Lungs and pleura: Small lung nodules are present change. There is a 2 mm nodule in the right upper lo be (series 6 image 73). A couple of 3 mm nodules are seen along the major fissure. There is a calcifi ed granuloma in the left upper lobe. No pleural effusions. No pneumothorax. No suspicious pulmonary nodules which require follow up. Mediastinum: Heart size is normal. No pericardial effusion. No large vessel abnormality. No mediastin al adenopathy by size criteria. Chest wall and lower neck: Thyroid is unremarkable. No axillary or supraclavicular adenopathy by size . Bones: No aggressive osseous abnormality. Upper Abdomen: Unremarkable. IMPRESSION: Lung RADS: 2 - Benign. Recommendation: Continue annual screening in 12 Months with LDCT Reviewed by: Tito Peng MD on 11/23/2022 5:21 PM PDT Approved by: Tito Peng MD on 11/23/2022 5:21 PM PDT Station ID: [id number]
== END 2022-11-23 11:14 | disposition home or self-care (01) ==
LOC: DI 11:13
PROVIDERS: ATTEND Physician Assistant
DX: Z12.2 Encounter for screening for malignant neoplasm of respiratory organs (principal); F17.200 Nicotine dependence, unspecified, uncomplicated

== ENCOUNTER 2023-04-05 19:30 | Emergency (ER) | payer MEDICARE, MEDICAID ==
[2023-04-05 19:40] VITALS: BP 140/88; O2SAT 97
--- NOTE | 2023-04-05 19:47 | ED Physician Documentation ---
History of Present Illness - Stated complaint Stated Complaint: MOUTH PX - Chief complaint Chief Complaint: Heent - History obtained from History obtained from: Patient - History of Present Illness Timing: Today Pain level max: 8 Pain level now: 8 - Additonal information Additional information: 67-year male presents to the emergency department stating that he had 4 teeth pulled today. He states that the dentist he saw would not write him any medication for pain tonight. He states he is having increasing pain. Not controlled by Tylenol or Motrin. No worse with attempting to eat or drink. Nothing makes it better. No active bleeding. No fevers. No chills. Review of Systems Constitutional: denies: Fever, Chills Respiratory: denies: Cough GI: denies: Vomiting, Diarrhea Skin: denies: Rash PD PAST MEDICAL HISTORY - Past Medical History Past Medical History: Yes Cardiovascular: Hypertension, Atrial fibrillation Respiratory: Emphysema Endocrine/Autoimmune: None GI: Colon polyps : None HEENT: None Psych: None Musculoskeletal: Chronic back pain Derm: None - Past Surgical History Past Surgical History: No Ortho: Other - Present Medications Home Medications: Ambulatory Orders Medication Instructions Recorded Confirmed Metoprolol Tartrate [Lopressor] 01/25/20 Rivaroxaban [Xarelto] 20 mg PO 01/25/20 Oxycodone HCl/Acetaminophen 1 - 2 each PO Q6H PRN #14 tablet 06/20/21 [Percocet 5-325 mg Tablet] HYDROcod/ACETAM 5/325 [[place] 5/325] 1 - 2 ea PO Q6H PRN #7 tablet 04/05/23 - Allergies Allergies/Adverse Reactions: Allergies Allergy/AdvReac Type Severity Reaction Status Date / Time No Known Drug Allergies Allergy Verified 04/05/23 19:34 - Social History Does the pt smoke?: No Smoking Status: Never smoker Does the pt drink ETOH?: No Does the pt have substance abuse?: No - Immunizations Immunizations are current?: Yes PD ED PE NORMAL - Vitals Vital signs reviewed: Yes - General General: Alert and oriented X 3, No acute distress - HEENT HEENT: Moist mucous membranes, Other (Recently extracted lower molars on the left side. Clots in place. No active bleeding.) - Neck Neck: Supple, no meningeal sign - Derm Derm: Warm and dry - Neuro Neuro: Alert and oriented X 3 - Psych Psych: Normal mood, Normal affect Results - Vitals Vitals: Vital Signs - 24 hr 04/05/23 19:34 Temperature 36.8 C Heart Rate 69 Respiratory 16 Rate Blood Pressure 140/88 H O2 Saturation 97 Oxygen O2 Source Room air PD Medical Decision Making - ED course Complexity details: considered differential, d/w patient ED course: Will prescribe a small amount of pain medication for tonight. He can be r eassessed in the morning by his dentist and his PCP as needed for any further pain medication. Patient counseled regarding signs and symptoms for which I believe and urgent re-evaluation would be necessary. Patient with good understanding of and agreement to plan and is comfortable going home at this time This document was made in part using voice recognition software. While efforts are made to proofread this document, sound alike and grammatical errors may occur. His PDMP and medication history was reviewed, no red flags. No recent narcotics. Departure - Departure Disposition: 01 Home, Self Care Clinical Impression: Pain, dental Condition: Good Instructions: ED Tooth Pain Follow-Up: January Wall PA-C [Primary Care Provider] - Prescriptions: HYDROcod/ACETAM 5/325 [[place] 5/325] 1 - 2 ea PO Q6H PRN #7 tablet PRN Reason: Pain Comments: Your prescription is sent to the [facility] pharmacy in [place]. Please follow- up with your doctor for further care and any further pain medication. I am prescribing a short course of narcotic pain medication for you. These are potentially dangerous and addictive medications that should be used carefully. These medications may constipate you. Take an dgzy-odr-pzdhrpe stool softener (docusate) twice daily with plenty of water while taking these medications. If you go 24 hours without a bowel movement, take xwll-drv-eiuxaev miralax, per package instructions. Do not drink or drive while taking these medications. If you received narcotic or sedating medications while in the emergency department, do not drive for 24 hours. Store this medication in a safe, secure place and out of reach of children. It is a violation of federal law to give or sell this medication to another person or to use in a manner other than prescribed. The ED will not refill narcotic prescriptions, including prescriptions lost or stolen. To dispose of unwanted medications: 1. [facility] at [address] in [place] has a medication drop box. They accept prescription medications (in pill form) Wednesday through Wednesday 9:00 a.m. to 5:00 p.m. 2. The [employer] accepts prescription medications (in pill form only) for disposal year round. Call for more information. 3. Contact the [facility] for the next [facility] sponsored prescription drug collection event. , [id number], or [id number]; Forms: PCP List Discharge Date/Time: 04/05/23 20:03
== END 2023-04-05 20:03 | disposition home or self-care (01) ==
LOC: ED 19:30
DX: K08.89 Other specified disorders of teeth and supporting structures (principal); I10 Essential (primary) hypertension; I48.91 Unspecified atrial fibrillation
CPT/HCPCS: 99282; 99283

== ENCOUNTER 2023-11-18 09:17 | Outpatient (CLI) | payer MEDICARE, MEDICAID | END 2023-11-18 23:59 | disposition critical access hospital (66) | LOC: EMS 09:17 | DX: M79.671 Pain in right foot (principal) | CPT/HCPCS: A0425; A0429 ==

== ENCOUNTER 2023-11-18 09:31 | Emergency (ER) | payer MEDICARE, MEDICAID ==
[2023-11-18 09:44] VITALS: O2SAT 98
--- NOTE | 2023-11-18 09:47 | ED Physician Documentation ---
History of Present Illness - Stated complaint Stated Complaint: R FT PX - Chief complaint Chief Complaint: Heent - History obtained from History obtained from: Patient, EMS - Additonal information Additional information: The patient comes to the emergency department via EMS for chief complaint of right ankle pain. He states that it has been going on the last couple days and that he has an appointment with Dr. Collier a week from today but he just cannot wait that long for cortisone shot. He states that the pain is very focused and that it is just in front of his medial malleolus. He denies any new injury. He has a history of surgery in 1988 and has hardware in the ankle. He has crutches at home but has not been using them. He has not been taking anything for the pain. He states he used to be addicted to crack cocaine about 20 years ago but got clean. PD PAST MEDICAL HISTORY - Past Medical History Cardiovascular: Hypertension, Atrial fibrillation Respiratory: Emphysema Endocrine/Autoimmune: None GI: Colon polyps : None HEENT: None Psych: None Musculoskeletal: Chronic back pain Derm: None - Past Surgical History Past Surgical History: No Ortho: Other - Present Medications Home Medications: Ambulatory Orders Medication Instructions Recorded Confirmed Metoprolol Tartrate [Lopressor] 01/25/20 Rivaroxaban [Xarelto] 20 mg PO 01/25/20 Oxycodone HCl/Acetaminophen 1 - 2 each PO Q6H PRN #14 tablet 06/20/21 [Percocet 5-325 mg Tablet] HYDROcod/ACETAM 5/325 [[place] 5/325] 1 - 2 ea PO Q6H PRN #7 tablet 04/05/23 - Allergies Allergies/Adverse Reactions: Allergies Allergy/AdvReac Type Severity Reaction Status Date / Time No Known Drug Allergies Allergy Verified 04/05/23 19:34 - Social History Does the pt smoke?: No Smoking Status: Never smoker Does the pt drink ETOH?: No Does the pt have substance abuse?: No - Immunizations Immunizations are current?: Yes PD ED PE NORMAL - Vitals Vital signs reviewed: Yes - General General: Alert and oriented X 3, No acute distress, Well developed/nourished - HEENT HEENT: Atraumatic, EOMI, Moist mucous membranes - Neck Neck: Supple, no meningeal sign - Cardiac Cardiac: Strong equal pulses - Respiratory Respiratory: No respiratory distress - Derm Derm: Normal color, Warm and dry, No rash - Extremities Extremities: No deformity, No edema, Other (Point tenderness just anterior to right medial malleolus. No deformity or edema.) - Neuro Neuro: Alert and oriented X 3 - Psych Psych: Normal mood, Normal affect Results - Vitals Vitals: Oxygen O2 Source Room air - Rads (name of study) R ankle XR series Relevant Findings:: Final report received, See rad report (stable hardware; neg) PD Medical Decision Making - ED course Complexity details: reviewed results, re-evaluated patient, considered differential, d/w patient ED course: I discussed with the pt that there is no emergent role for a cortisone shot in him or anyone else. As such, I do not perform cortisone injections in the ED, and am not the best person to do so anyway, as it is not a procedure I or most other emergency physicians perform regularly. Furthermore, the pt already has an appointment with orthopedics for this very purpose, and I have declined to administer an intraarticular injection today. The pt has not had a distinct injury and I suspect his pain is the result of flare-up from general use, compounded by the presence of old, underlying injury. He is concerned about his hardware, so I have obtained an ankle XR, and this is unremarkable, with stable hardware. I have offered symptomatic treatment in the ED and encouraged the pt to continue his plans to follow up with ortho next week. Departure - Departure Disposition: 01 Home, Self Care Clinical Impression: Ankle pain, right Qualifiers: Chronicity: chronic Qualified Code(s): M25.571 - Pain in right ankle and joints of right foot Condition: Stable Instructions: ED Degenerative Joint Disease Comments: Your ankle x-ray shows some degenerative changes/osteoarthritis. There is no evidence of your hardware having migrated and it appears to be in good position. Unfortunately, although many people wish to get elective procedures done in the emergency department, this is not something we offer because of the need to reserve her services for acute or emergent cases. As such, we really do not do steroid joint injections with any regularity at all and you are best off going to your orthopedic surgeon, who does them on a regular basis. If you wish to be seen sooner, you may call his office and see if he can get your appointment moved up. Otherwise, please use crutches to keep the Weight off your ankle and hopefully this will improve some of the pain you are having. You may also take ibuprofen and Tylenol as needed to help with the discomfort. Please use ice packs and prop the foot up when you get a chance. Forms: PCP List Discharge Date/Time: 11/18/23 10:17
[2023-11-18] MEDS: KETOROLAC 60 MG/2 ML VIAL IM STA (09:51)
[2023-11-18] MEDS: DEXAMETHASONE 10 MG/ML VIAL IM STA (09:53)
[2023-11-18 09:54] VITALS: BP 119/92
[2023-11-18] MEDS: HYDROmorphone 0.5 MG/0.5 ML SYRINGE IM STA (09:54)
--- NOTE | 2023-11-18 10:05 | XRAY Report ---
PROCEDURE: Ankle 3+V RT INDICATIONS: ankle pain, h/o surgery/hardware TECHNIQUE: 3 views of the ankle were acquired. COMPARISON: Right foot x-ray 09/14/2022. FINDINGS: Bones: Stable calcaneal fixation hardware. No fractures or dislocations. Ankle mortise is normally aligned. No suspicious bony lesions. Stable subtalar osteoarthritis. Soft tissues: No tibiotalar joint effusion. Achilles tendon appears normal. IMPRESSION: No fracture. No acute osseous lesion. If symptoms and/or clinical concern for pathology persists, fur ther assessment with repeat plain film radiographs (7-10 days) or advanced imaging (CT, MR, bone scan ) should be considered. Reviewed by: Yolanda Zamora MD, PhD on 11/18/2023 10:04 AM PDT Approved by: Yolanda Zamora MD, PhD on 11/18/2023 10:04 AM PDT Station ID: [id number]
== END 2023-11-18 10:17 | disposition home or self-care (01) ==
LOC: EDUNIT# → EDSEX → ED 09:31
DX: M25.571 Pain in right ankle and joints of right foot (principal); I10 Essential (primary) hypertension; I48.91 Unspecified atrial fibrillation; J43.9 Emphysema, unspecified; Z86.010 Personal history of colon polyps
CPT/HCPCS: 73610; 96372; 99283; J1170

== ENCOUNTER 2023-12-06 09:35 | Outpatient (CLI) | payer MEDICARE, MEDICAID ==
--- NOTE | 2023-12-06 12:56 | CT Report ---
PROCEDURE: Lung Cancer Screen INDICATIONS: NICOTINE ABUSE TECHNIQUE: A CT scan of the chest was performed. Intravenous contrast media was not administered. Images were re corded and evaluated at appropriate window settings. Reformats: axial MIP of the chest, coronal and s agittal. For radiation dose reduction, the following was used: automated exposure control, adjustment of mA and/or kV according to patient size. COMPARISON: Ultrasound 11/26/2021 FINDINGS: Image quality: Excellent. Prior cancer history: Unsure. Lungs and pleura: No pleural effusions. No pneumothorax. No suspicious pulmonary nodules which requi re short interval follow-up. Juxtapleural nodules with smooth margins, favoring benign intrapulmonary lymph nodes. Mediastinum: Heart size is enlarged. No pericardial effusion. No large vessel abnormality. No mediast inal adenopathy by size criteria. Three vessel coronary artery calcifications. Chest wall and lower neck: Thyroid is unremarkable. No axillary or supraclavicular adenopathy by size . Bones: No aggressive osseous abnormality. Upper Abdomen: Possible 2.5 cm hypoattenuating lesion in segment 6 of the liver (series 2, image 132) . IMPRESSION: Lung RAD: 2 Recommendation: Continue annual screening in 12 Months with LDCT Non-Lung Significant Findings: 1. Coronary Arterial Calcification - Moderate or Severe. Consider cardiology referral. 2. Possible 2.5 cm right hepatic lesion. Consider abdominal ultrasound for confirmation. Reviewed by: Khai Ibanez MD on 12/06/2023 12:54 PM PDT Approved by: Khai Ibanez MD on 12/06/2023 12:54 PM PDT Station ID: [id number]
== END 2023-12-06 09:36 | disposition home or self-care (01) ==
LOC: DI 09:35
PROVIDERS: ATTEND Physician Assistant
DX: Z12.2 Encounter for screening for malignant neoplasm of respiratory organs (principal); I25.10 Atherosclerotic heart disease of native coronary artery without angina pectoris; F17.200 Nicotine dependence, unspecified, uncomplicated

== ENCOUNTER 2023-12-23 08:41 | Outpatient (CLI) | payer MEDICARE, MEDICAID ==
--- NOTE | 2023-12-23 16:16 | Ultrasound Report ---
Abdomen Limited CLINICAL HISTORY: 68 years of age, Male, LESION OF LIVER, HEP C. COMPARISON: Correlated with prior CT lung cancer screening on 12/06/2023. TECHNIQUE: Ultrasound of the abdomen, right upper quadrant was performed. FINDINGS: Liver: The liver measures 13.6 cm. There is a 3.4 x 2.8 x 3.8 cm heterogeneous mass in the right hepa tic lobe. Gallbladder: Contracted, limiting evaluation. Normal wall thickness. No gallstone. No sonographic Mur phy's sign. Bile Ducts: No intra or extra hepatic biliary ductal dilatation. Common bile duct measures 3 mm. IMPRESSION: 3.4 cm heterogeneous mass in the right hepatic lobe. Recommend correlation with MR liver protocol. Reviewed by: Lulu Chung MD on 12/23/2023 4:15 PM PDT Approved by: Lulu Chung MD on 12/23/2023 4:15 PM PDT Station ID: [id number]
== END 2023-12-23 08:42 | disposition home or self-care (01) ==
LOC: DI 08:41
PROVIDERS: ATTEND Physician Assistant
DX: R16.0 Hepatomegaly, not elsewhere classified (principal); B18.2 Chronic viral hepatitis C

== ENCOUNTER 2023-12-30 12:00 | Outpatient (CLI) | payer MEDICARE, MEDICAID ==
[2023-12-30 18:04] LABS: BASOPHILS # (AUTO) 0.1 10^3/uL (0.0-0.1); BASOPHILS % (AUTO) 1.1 %; EOSINOPHILS # (AUTO) 0.6 10^3/uL (0.0-0.7); EOSINOPHILS % (AUTO) 10.2 %; HCT - HEMATOCRIT 37.5 % (42.0-52.0); HGB - HEMOGLOBIN 12.7 g/dL (14.0-18.0); LYMPHOCYTES # (AUTO) 1.5 10^3/uL (1.5-3.5); LYMPHOCYTES % (AUTO) 26.9 %; MEAN CORPUSCULAR HEMOGLOBIN 35.7 pg (27.0-31.0); MEAN CORPUSCULAR HGB CONC 33.9 g/dL (32.0-36.0); MEAN CORPUSCULAR VOLUME 105.3 fL (80.0-94.0); MEAN PLATELET VOLUME 11.1 fL (7.4-11.4); MONOCYTES # (AUTO) 0.5 10^3/uL (0.0-1.0); MONOCYTES % (AUTO) 9.3 %; NEUTROPHILS % (AUTO) 52.3 %; PLT - PLATELET COUNT 212 10^3/uL (130-450); RED BLOOD COUNT 3.56 10^6/uL (4.70-6.10); RED CELL DISTRIBUTION WIDTH 12.4 % (12.0-15.0); WHITE BLOOD COUNT 5.7 x10^3/uL (4.8-10.8)
[2023-12-30 18:15] LABS: URIC ACID 8.4 mg/dL (4.4-7.6)
[2023-12-30 18:19] LABS: CALCIUM 9.1 mg/dL (8.5-10.3); CREATININE 0.7 mg/dL (0.6-1.3); POTASSIUM 4.1 mmol/L (3.5-4.5)
== END 2023-12-30 12:15 | disposition home or self-care (01) ==
LOC: LAB.N 12:00
PROVIDERS: ATTEND Family Medicine
DX: M10.9 Gout, unspecified (principal)
CPT/HCPCS: 36415; 80048; 84550; 85025; 85651

== ENCOUNTER 2024-01-01 15:37 | Outpatient (CLI) | payer MEDICARE, MEDICAID ==
[~2024-01-01 15:37] MED LIST: GADOTERATE MEGLUMINE 10 MMOL/20 ML VIAL ONE
[2024-01-01] MEDS: GADOTERATE MEGLUMINE 10 MMOL/20 ML VIAL IVP ONE (16:19)
--- NOTE | 2024-01-04 12:22 | MRI Report ---
PROCEDURE: Abdomen W/WO INDICATIONS: LIVER LESION. History of hepatitis C per ultrasound report dated 11/26/2021. CONTRAST: CLARISCAN 17.2 ML TECHNIQUE: Coronal ultra fast SE, axial 2D spoiled GE in- and vox-sy-xdwtd; axial breath-hold T2 fast SE. Dynam ic axial ultra fast GE during the administration of contrast; post-contrast coronal ultra fast GE or 2D spoiled GE with fat saturation from the hepatic dome to the iliac crests. Optional diffusion weig hted imaging and ADC may be performed. COMPARISON: CT 12/06/2023, ultrasound 12/21/2023, 11/26/2021 FINDINGS: Image quality: Excellent. Lung bases and heart: Unremarkable. Liver: 3.1 cm segment 6 lesion with arterial enhancement, washout and pseudocapsule formation. 7 mm c yst in segment 7. Gallbladder and biliary tree: No radiopaque stones or wall thickening. No biliary dilation. Spleen: No splenomegaly. Pancreas: No pancreatic ductal dilation. Adrenals: No adrenal nodule. Kidneys and ureters: No hydronephrosis. No renal cystic lesion which requires follow up. No solid mas s. Bowel and peritoneum: No bowel distension. No pathologic free fluid. Lymph nodes: No central or retroperitoneal adenopathy. Vessels: No infrarenal aortic aneurysm. Bones: No aggressive osseous abnormality. Other: No significant ventral hernia. IMPRESSION: 3.1 cm segment 6 solid mass with arterial enhancement, washout and pseudocapsule formation. Findings are concerning for hepatocellular carcinoma in the setting of hepatitis C. Consider biopsy for confir mation. Reviewed by: Khai Ibanez MD on 01/04/2024 12:21 PM PDT Approved by: Khai Ibanez MD on 01/04/2024 12:21 PM PDT Station ID: [id number]
== END 2024-01-01 15:38 | disposition home or self-care (01) ==
LOC: DI 15:37
PROVIDERS: ATTEND Physician Assistant
DX: K76.89 Other specified diseases of liver (principal)
CPT/HCPCS: 74183; A9575

== ENCOUNTER 2024-01-18 13:30 | Outpatient (CLI) | payer MEDICARE, MEDICAID ==
--- NOTE | 2024-01-19 08:45 | XRAY Report ---
PROCEDURE: Chest 2V INDICATIONS: COUGH TECHNIQUE: 2 views of the chest were acquired. COMPARISON: 01/10/2024 FINDINGS: Surgical changes and devices: None. Lungs and pleura: No pleural effusions or pneumothorax. Lungs are clear. Mediastinum: Cardiomegaly is unchanged. No evidence of pulmonary vascular congestion. Remainder the mediastinal contours appear unremarkable. Bones and chest wall: No suspicious bony lesions. Overlying soft tissues appear unremarkable. IMPRESSION: Cardiomegaly without evidence of congestive change. Reviewed by: Christiano Ferrell MD on 01/19/2024 8:43 AM PDT Approved by: Christiano Ferrell MD on 01/19/2024 8:43 AM PDT Station ID: [id number]
== END 2024-01-18 13:45 | disposition home or self-care (01) ==
LOC: DI.N 13:30
PROVIDERS: ATTEND Family Medicine
DX: R05.9 Cough, unspecified (principal); I51.7 Cardiomegaly; R60.0 Localized edema
CPT/HCPCS: 36415; 80053; 85025

== ENCOUNTER 2024-01-18 13:45 | Outpatient (CLI) | payer MEDICARE, MEDICAID ==
[2024-01-18 17:43] LABS: BASOPHILS # (AUTO) 0.1 10^3/uL (0.0-0.1); BASOPHILS % (AUTO) 0.7 %; EOSINOPHILS # (AUTO) 0.6 10^3/uL (0.0-0.7); EOSINOPHILS % (AUTO) 7.8 %; HGB - HEMOGLOBIN 13.4 g/dL (14.0-18.0); LYMPHOCYTES # (AUTO) 2.1 10^3/uL (1.5-3.5); LYMPHOCYTES % (AUTO) 25.3 %; MEAN CORPUSCULAR HGB CONC 32.7 g/dL (32.0-36.0); MEAN PLATELET VOLUME 10.9 fL (7.4-11.4); MONOCYTES # (AUTO) 0.8 10^3/uL (0.0-1.0); MONOCYTES % (AUTO) 9.9 %; NEUTROPHILS # (AUTO) 4.6 10^3/uL (1.5-6.6); NEUTROPHILS % (AUTO) 55.9 %; PLT - PLATELET COUNT 179 10^3/uL (130-450); RED BLOOD COUNT 3.83 10^6/uL (4.70-6.10); WHITE BLOOD COUNT 8.2 x10^3/uL (4.8-10.8)
[2024-01-18 17:56] LABS: ALBUMIN 4.1 g/dL (3.2-5.5); ALBUMIN/GLOBULIN RATIO 1.5 (1.0-2.2); BILIRUBIN,TOTAL 1.2 mg/dL (0.2-1.0); CALCIUM 9.2 mg/dL (8.5-10.3); CREATININE 0.9 mg/dL (0.6-1.3); POTASSIUM 4.3 mmol/L (3.5-4.5); TOTAL PROTEIN 6.8 g/dL (6.4-8.9)
== END 2024-01-18 14:00 | disposition home or self-care (01) ==
LOC: LAB.N 13:45
PROVIDERS: ATTEND Family Medicine
DX: I50.9 Heart failure, unspecified (principal); R60.0 Localized edema
CPT/HCPCS: 36415; 80053; 85025

== ENCOUNTER 2024-01-20 09:30 | Outpatient (CLI) | payer MEDICARE, MEDICAID | END 2024-01-20 22:50 | disposition critical access hospital (66) | LOC: EMS 09:30 | DX: R06.02 Shortness of breath (principal); R07.89 Other chest pain; I48.91 Unspecified atrial fibrillation | CPT/HCPCS: A0425; A0427 ==

== ENCOUNTER 2024-01-20 09:43 | Emergency (ER) | payer MEDICARE, MEDICAID ==
--- NOTE | 2024-01-20 10:18 | XRAY Report ---
PROCEDURE: Chest 1V INDICATIONS: chest pain/sob TECHNIQUE: One view of the chest was acquired. COMPARISON: 01/18/2024. FINDINGS: Surgical changes and devices: None. Lungs and pleura: No pleural effusions or pneumothorax. Minimal interstitial pulmonary edema. Mediastinum: Mediastinal contours appear normal. Unchanged cardiomegaly. Bones and chest wall: No suspicious bony lesions. Overlying soft tissues appear unremarkable. IMPRESSION: Mild congestive heart failure exacerbation. Reviewed by: Martin Irizarry MD on 01/20/2024 10:17 AM PDT Approved by: Martin Irizarry MD on 01/20/2024 10:17 AM PDT Station ID: [id number]
[2024-01-20 10:20] LABS: BASOPHILS # (AUTO) 0.1 10^3/uL (0.0-0.1); BASOPHILS % (AUTO) 0.8 %; EOSINOPHILS # (AUTO) 0.6 10^3/uL (0.0-0.7); EOSINOPHILS % (AUTO) 6.6 %; HGB - HEMOGLOBIN 12.6 g/dL (14.0-18.0); LYMPHOCYTES # (AUTO) 1.7 10^3/uL (1.5-3.5); MEAN CORPUSCULAR HEMOGLOBIN 34.6 pg (27.0-31.0); MEAN CORPUSCULAR HGB CONC 32.3 g/dL (32.0-36.0); MEAN CORPUSCULAR VOLUME 107.1 fL (80.0-94.0); MEAN PLATELET VOLUME 10.6 fL (7.4-11.4); MONOCYTES # (AUTO) 0.7 10^3/uL (0.0-1.0); MONOCYTES % (AUTO) 7.9 %; NEUTROPHILS # (AUTO) 5.7 10^3/uL (1.5-6.6); NEUTROPHILS % (AUTO) 65.2 %; PLT - PLATELET COUNT 166 10^3/uL (130-450); RED BLOOD COUNT 3.64 10^6/uL (4.70-6.10); WHITE BLOOD COUNT 8.8 x10^3/uL (4.8-10.8)
[2024-01-20] MEDS: diltiaZEM CD 120 MG CAPSULE PO STA (10:35)
[2024-01-20] MEDS: diltiaZEM INJ 5 MG/ML VIAL IVP STA (10:36)
[2024-01-20 10:45] LABS: ALBUMIN 3.9 g/dL (3.2-5.5); ALBUMIN/GLOBULIN RATIO 1.6 (1.0-2.2); BILIRUBIN,TOTAL 1.1 mg/dL (0.2-1.0); CALCIUM 8.8 mg/dL (8.5-10.3); CREATININE 0.9 mg/dL (0.6-1.3); POTASSIUM 4.5 mmol/L (3.5-4.5); TOTAL PROTEIN 6.3 g/dL (6.4-8.9)
--- NOTE | 2024-01-20 13:19 | ED Physician Documentation ---
PD HPI DYSPNEA - Stated complaint Stated Complaint: CHEST DISCOMFORT - Chief complaint Chief Complaint: Cardiac - History obtained from History obtained from: Patient - Additional information Additional information: Patient comes to the emergency department via EMS for chief complaint of dyspnea for the last few days. He states that he saw his primary care physician Dr. Shannon several days ago and was put on Lasix and lost about 12 pounds worth of water from mainly his legs. He states that that part feels better but it did not really change his breathing. He states that today he had a brief pain in his upper central chest that went away on its own after a few minutes. He was found to be in A-fib with mild RVR and route and the medics gave him some diltiazem, which seemed to help his symptoms. He states that he prior to taking the Lasix felt much worse if he laid down but felt a lot better when he would get up and sit in his recliner. He states the swelling in his legs is way down. He states he has a history of some congestive heart failure. 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 He sees Dr. Bermudez for cardiology for his atrial fibrillation. He states he is pretty much always in A-fib he has also had a recent productive cough with yellow sputum. No fevers or chills. No other complaints at this time. PD PAST MEDICAL HISTORY - Past Medical History Cardiovascular: Hypertension, [place], Atrial fibrillation Respiratory: Emphysema Endocrine/Autoimmune: None GI: Colon polyps : None HEENT: None Psych: None Musculoskeletal: Chronic back pain Derm: None - Past Surgical History Past Surgical History: No Ortho: Other - Present Medications Home Medications: Ambulatory Orders Medication Instructions Recorded Confirmed Rivaroxaban [Xarelto] 20 mg PO DAILY 01/25/20 01/20/24 Azithromycin [Zithromax] 0 mg PO DAILY #6 tablet 01/20/24 Furosemide [Lasix] 20 mg PO DAILY 01/20/24 01/20/24 Lisinopril [Zestril] 10 mg PO DAILY 01/20/24 01/20/24 Metoprolol Succinate 150 mg PO BID 01/20/24 01/20/24 predniSONE [Deltasone] 10 mg PO [id number] #42 tab 01/20/24 - Allergies Allergies/Adverse Reactions: Allergies Allergy/AdvReac Type Severity Reaction Status Date / Time No Known Drug Allergies Allergy Verified 01/20/24 10:12 - Social History Does the pt smoke?: Yes Smoking Status: Current every day smoker Does the pt drink ETOH?: No Does the pt have substance abuse?: No - Immunizations Immunizations are current?: Yes PD ED PE NORMAL - Vitals Vital signs reviewed: Yes - General General: Alert and oriented X 3, No acute distress, Well developed/nourished - HEENT HEENT: Atraumatic, EOMI, Moist mucous membranes - Neck Neck: Supple, no meningeal sign - Cardiac Cardiac: No murmur, Strong equal pulses, Other (Irregularly irregular rate and rhythm with slight tachycardia.) - Respiratory Respiratory: No respiratory distress, Clear bilaterally - Abdomen Abdomen: Soft, Non tender, Non distended - Derm Derm: Normal color, Warm and dry, No rash - Extremities Extremities: No deformity, No edema, No calf tenderness / cord - Neuro Neuro: Alert and oriented X 3 - Psych Psych: Normal mood, Normal affect Results - Vitals Vitals: Vital Signs - 24 hr 01/20/24 01/20/24 01/20/24 10:07 10:35 10:43 Temperature 36.7 C Heart Rate 106 H 115 H 86 Respiratory 16 Rate Blood Pressure 115/82 H 115/82 H 112/80 O2 Saturation 98 01/20/24 01/20/24 01/20/24 10:48 10:53 11:41 Temperature Heart Rate 81 96 Respiratory 17 Rate Blood Pressure 102/78 109/84 H O2 Saturation 01/20/24 01/20/24 01/20/24 11:44 11:55 11:56 Temperature Heart Rate 91 101 H Respiratory 17 17 Rate Blood Pressure 103/86 H 112/88 H O2 Saturation 97 96 96 01/20/24 12:53 Temperature Heart Rate 102 H Respiratory 17 Rate Blood Pressure 113/80 O2 Saturation 94 Oxygen O2 Source Room air - EKG (time done) 1018 EKG releavant findings:: EKG personally interpreted by author of this note. Relevant findings are: Rate: Rate (enter#) (94) Rhythm: Atrial fibrillation [place]: LAD (Borderline) Intervals: Prolonged QT (Borderline prolonged QT interval), Other (. PVCs) QRS: Normal Ischemia: Normal ST segments Compare to prior EKG: Old EKG unavailable Computer interpretation: Agree with computer - Labs Labs: Laboratory Tests 01/20/24 01/20/24 01/20/24 10:13 10:13 10:13 WBC 8.8 RBC 3.64 L Hgb 12.6 L Hct 39.0 L MCV 107.1 H MCH 34.6 H MCHC 32.3 RDW 13.0 Plt Count 166 MPV 10.6 Neut # (Auto) 5.7 Lymph # (Auto) 1.7 Leslie # (Auto) 0.7 Eos # (Auto) 0.6 Baso # (Auto) 0.1 Absolute Nucleated RBC 0.00 Nucleated RBC % 0.0 Sodium 139 Potassium 4.5 Chloride 104 Carbon Dioxide 28 Anion Gap 7.0 BUN 17 Creatinine 0.9 Estimated GFR (MDRD) 84 L Glucose 108 H Calcium 8.8 Total Bilirubin 1.1 H AST 18 ALT 16 Alkaline Phosphatase 105 Troponin I High Sens 20.8 H* B-Natriuretic Peptide Total Protein 6.3 L Albumin 3.9 Globulin 2.4 Albumin/Globulin Ratio 1.6 Lipase 65 01/20/24 01/20/24 10:13 12:44 WBC RBC Hgb Hct MCV MCH MCHC RDW Plt Count MPV Neut # (Auto) Lymph # (Auto) Leslie # (Auto) Eos # (Auto) Baso # (Auto) Absolute Nucleated RBC Nucleated RBC % Sodium Potassium Chloride Carbon Dioxide Anion Gap BUN Creatinine Estimated GFR (MDRD) Glucose Calcium Total Bilirubin AST ALT Alkaline Phosphatase Troponin I High Sens 20.2 H* B-Natriuretic Peptide 566 H Total Protein Albumin Globulin Albumin/Globulin Ratio Lipase PD Medical Decision Making - ED course Complexity details: reviewed results, re-evaluated patient, considered differential, d/w patient ED course: The patient overall looked quite good and no longer was having any chest pain. He was worked up with labs which showed stable serial troponins at 20. He was worked up with chest x-ray showed a mild congestive heart failure exacerbation. Remainder of his tests are unremarkable. With the productive cough in the setting of his COPD and smoking, I did decide to treat him with antibiotics for this.We have discussed the need to quit smoking and the usual indications for follow-up and return. I have advised him to continue his Lasix for now. Departure - Departure Disposition: 01 Home, Self Care Clinical Impression: COPD exacerbation, Bronchitis CHF exacerbation Qualifiers: Heart failure type: unspecified Qualified Code(s): I50.9 - Heart failure, unspecified Condition: Stable Instructions: COPD Dc, ED CHF General, ED Upper Resp Infec Abx Tx Prescriptions: predniSONE [Deltasone] 10 mg PO [id number] #42 tab Azithromycin [Zithromax] 0 mg PO DAILY #6 tablet Comments: Your chest x-ray shows some mild residual fluid and congestive heart failure exacerbation but overall, looks fairly good. Your cardiac labs are stable. The remainder of your labs overall look good. We have given you dose of steroids today. I have sent a prescription for steroid quite to the [facility] pharmacy in [place], your pharmacy of choice on record. Have also sent some antibiotics for your bronchitis. I think you should continue your Lasix/furosemide for another week or so. Please follow-up with your primary doctor soon as possible.
[2024-01-20 13:45] VITALS: BP 106/83; O2SAT 96
--- NOTE | 2024-01-21 06:05 | ED Physician Documentation ---
ED Addendum - Addendum Addendum: 01/21/24 05:56 On my overnight shift, patient called early AM 01/21/24 and spoke with ED RN (Yumiko) asking if a prescription for duonebs could be sent to his pharmacy. I was subsequently involved in a second phone conversation on speaker phone; Patient Phu he was treated and released from this emergency department during the day yesterday (01/20/2024), but subsequently went to [facility] pharmacy where he was told there were no prescriptions called in for him. He says he did obta in a nebulizer at [facility] but does not have any medications to use with the nebulizer. I reviewed this patient's chart from the ED visit yesterday; patient was treated and released by my colleague (Dr. Bear) for shortness of breath, suspected CHF and COPD exacerbations. The charting further indicates that prescriptions for prednisone and Zithromax were transmitted to the [facility] pharmacy. I also see prescriptions in [facility] for both albuterol as well as DuoNebs but no indication that these were transmitted to any pharmacy. Thus, I electronically submitted prescriptions for all 4 of these medications (albuterol nebs, Atrovent nebs, Zithromax, prednisone) to the [facility] pharmacy. Over the phone, the patient was informed that his prescriptions will be submitted to [facility] (and, specifically, not [facility]).
== END 2024-01-20 13:44 | disposition home or self-care (01) ==
LOC: EDUNIT# → ED 09:43
DX: J44.1 Chronic obstructive pulmonary disease with (acute) exacerbation (principal); J43.9 Emphysema, unspecified; I11.0 Hypertensive heart disease with heart failure; I50.9 Heart failure, unspecified; I48.91 Unspecified atrial fibrillation; I25.2 Old myocardial infarction; F17.200 Nicotine dependence, unspecified, uncomplicated; Z79.899 Other long term (current) drug therapy; Z79.01 Long term (current) use of anticoagulants
CPT/HCPCS: 36415; 71045; 80053; 83690; 83880; 84484; 85025; 93005; 96374; 99284; A9270

== ENCOUNTER 2024-01-23 15:02 | Outpatient (CLI) | payer MEDICARE, MEDICAID | END 2024-01-23 15:03 | disposition home or self-care (01) | LOC: DI 15:02 | PROVIDERS: ATTEND Family Medicine | DX: I50.9 Heart failure, unspecified (principal) | CPT/HCPCS: 93307 ==